=== PATIENT | male | born 1995 | race Two or more races ===

== ENCOUNTER 2016-06-05 21:30 | Emergency (ER) | payer MEDICAID, OTHER ==
[~2016-06-05] VITALS: Ht 172.7 cm; Wt 83.5 kg
[2016-06-06 05:56] VITALS: BP 131/77
== END 2016-06-06 05:58 | disposition home or self-care (01) ==
LOC: ER 21:34
DX: S16.1XXA Strain of muscle, fascia and tendon at neck level, initial encounter (principal); S93.402A Sprain of unspecified ligament of left ankle, initial encounter; S96.912A Strain of unspecified muscle and tendon at ankle and foot level, left foot, initial encounter; S09.90XA Unspecified injury of head, initial encounter; R51 Headache; V48.5XXA Car driver injured in noncollision transport accident in traffic accident, initial encounter; Y93.89 Activity, other specified; Y99.8 Other external cause status; Y92.488 Other paved roadways as the place of occurrence of the external cause
CPT/HCPCS: 70450; 72125; 73600; 73620